=== PATIENT | female | born 1960 | race Two or more races ===

== ENCOUNTER 2023-01-24 05:22 | Day surgery (SDC) | payer OTHER | END 2023-01-24 11:00 | disposition home or self-care (01) | LOC: AMB-ENDOS 05:22 | PROVIDERS: ATTEND Surgery | DX: D12.2 Benign neoplasm of ascending colon (principal); D12.3 Benign neoplasm of transverse colon; D12.5 Benign neoplasm of sigmoid colon; K57.30 Diverticulosis of large intestine without perforation or abscess without bleeding; Z86.010 Personal history of colon polyps; R19.4 Change in bowel habit; K64.8 Other hemorrhoids; Z20.822 Contact with and (suspected) exposure to COVID-19 ==

== ENCOUNTER 2025-01-22 07:00 | Day surgery (SDC) | payer OTHER ==
[2025-01-22] MEDS ORDERED: DIPHENHYDRAMINE HCL 50 MG/ML VIAL 1ML IV ONE (10:15)
[2025-01-22] MEDS ORDERED: fentaNYL CITRATE 50 MCG/ML AMPUL IV ONE (10:15)
[2025-01-22] MEDS ORDERED: MIDAZOLAM HCL 2 MG/2 ML VIAL IV ONE (10:15)
== END 2025-01-22 11:25 | disposition home or self-care (01) ==
LOC: CIR.AMB 07:00
PROVIDERS: ATTEND Surgery
DX: D12.2 Benign neoplasm of ascending colon (principal); D12.3 Benign neoplasm of transverse colon; D12.5 Benign neoplasm of sigmoid colon; K57.30 Diverticulosis of large intestine without perforation or abscess without bleeding; K52.89 Other specified noninfective gastroenteritis and colitis; Z86.0100 Personal history of colon polyps, unspecified; K63.5 Polyp of colon; Z88.6 Allergy status to analgesic agent; Z91.041 Radiographic dye allergy status